=== PATIENT | female | born 1955 | race Caucasian/White ===

== ENCOUNTER → 2019-06-29 15:16 | Outpatient (CLI) | payer MEDICARE, MEDICAID, SELFPAY ==
--- NOTE | 2019-06-29 15:18 | DI.RAD.S_ITS ---
PROCEDURE: XR LUMBAR SPINE MIN 4V INDICATIONS: lumbar pain of greater than 3 months TECHNIQUE: 5 total views of the lumbar spine were acquired, including bilateral oblique views. COMPARISON: [facility], RG, MRI L-SPINE W/O CONTRAST, 04/15/2019, 13:16. FINDINGS: Bones: Mild levoconvex scoliotic curvature is noted. There is minimal anterolisthesis seen at L4-L5 and No displaced fractures are seen. No suspicious lytic or blastic lesions are seen. There is moderate disc space narrowing seen at L5-S1, with mild disc space narrowing at L4-L5 and L3-L4. Lower lumbar spine facet arthropathy is seen. Age-appropriate lower thoracic spine degenerative changes are seen. Soft tissues: Overlying bowel gas pattern is normal. No suspicious soft tissue calcifications. Oblique images: No pars defects. IMPRESSION: Lumbar spine degenerative changes are seen, which are most prominent inferiorly. Dictated by: Edmond Gonzalez M.D. on 06/29/2019 at 14:56 Approved by: Edmond Gonzalez M.D. on 06/29/2019 at 14:58
== END ==
PROVIDERS: Family Provider Nurse Practitioner Family; PCP Nurse Practitioner Family; Visit Provider Registered Nurse
DX: M54.5 Low back pain (principal); M47.816 Spondylosis without myelopathy or radiculopathy, lumbar region
CPT/HCPCS: 72110

== ENCOUNTER 2019-07-22 15:09 | Outpatient (CLI) | payer MEDICARE, MEDICAID, SELFPAY ==
[2019-07-22] VITALS (8 sets, daily range): BP systolic 112–168; BP diastolic 55–91; PULSE 59–76; RESP 16–22; TEMP 36.2; O2SAT 94–121
--- NOTE | 2019-07-22 15:10 | DI.RAD.S_ITS ---
PROCEDURE: PAIN L/S FACET INJ/BLK 1ST FLAQUITO COMPARISON: None. INDICATIONS: SPONDYLOSIS FINDINGS: Needle tip localization is documented bilaterally for facet joint injection at L4-5 and L5-S1. IMPRESSION: Successful needle tip localization for 4 facet steroid injection procedures. Dictated by: Martinez Wilks M.D. on 07/22/2019 at 16:53 Approved by: Martinez Wilks M.D. on 07/22/2019 at 16:57
[2019-07-22] MEDS: MIDAZOLAM 5 MG/5 ML VIAL IV (16:13)
[2019-07-22] MEDS: LIDOCAINE 1% 20 ML 10 ML INJ (16:22)
[2019-07-22] MEDS: BETAMETHASONE 30 MG/5 ML MDV 12 MG INJ (16:22)
[2019-07-22] MEDS: BUPIVACAINE 0.5% (PF) VIAL 2 ML INJ (16:22)
[2019-07-22] MEDS: IOPAMIDOL 15 ML VIAL 3 ML INJ (16:22)
--- NOTE | 2019-07-22 16:25 | PC.NURSE ---
ASSISTING PT OFF TABLE AND TRANSPORTING TO POST PROC AREA IN STABLE CONDITION. PASSING RN CARE OF PT OFF TO CIRA Gentile RN. VERSED PREPPED AND ADMINISTERED BY THIS RN. ALL OTHER MEDS PREPPED AND ADMINISTERED BY DR. SPANGLER.
--- NOTE | 2019-07-22 16:41 | P.PCN_ITS ---
Procedures Date/Time Date of procedure: 07/22/19 Time of procedure: 16:42 General Procedure description: PREOP DIAGNOSIS 1. FACET ARTHROPATHY 2. AXIAL LBP 3. MULTILEVEL DDD POST OP DIAGNOSIS 1. FACET ARTHROPATHY 2. AXIAL LBP 3. MULTILEVEL DDD PROCEDURES 1. FLUORSCOPICALLY GUIDED CONTRAST CONTROLLED FACET JOINT INJECTIONS BILATERAL L4/5, L5/S1 PHYSICIAN: Mauricio Kilgore, DO INDICATIONS David is referred by NISA Negro for treatment of Axial LBP FINDINGS Multilevel Facet Arthropathy with Clinically significant axial LBP DESCRIPTION OF PROCEDURE Fluoroscopically guided, contrast-controlled bilateral L4/5, L5/S1 facet joint injections. Following review of allergy and review of potential side effects and complications, including, but not necessarily limited to, infection, allergic reaction, local tissue breakdown, stroke, temporary or permanent nerve injury, paralysis, and possible , the patient indicated that the patient understood and agreed to proceed. An informed consent document was signed by the patient, witnessed by a nurse, and placed in the patient's chart. Additionally, other treatment options including medications, modalities, and physical therapy were reviewed with the patient. After review of previous anaesthesic history and IV conscious sedation the patient was deemed safe to proceed with todays procedure with IV conscious sedation as ASA class II designation. Safety time-out was performed to confirm patient ID, procedure to be performed and site of procedure. IV sedation was accomplished with a combination of 3mg of Versed was administered by the RN after DO order, titrated to patient comfort during the course of the procedure while the patient remained responsive to all verbal commands In the prone position, following sterile prep and drape of the lumbar region, the posterior aspect of the L4/5, L5/S1 facet joints were identified fluoroscopically. The skin was anesthetized via a 25-gauge 1.5-inch needle with 1% lidocaine solution into the corresponding facet joints. At this point, a 22- gauge 5-inch spinal needle was atraumatically introduced and advanced under fluoroscopic guidance into the corresponding facet joints. Following negative aspiration, injections of approximately 0.2-cc of Isovue 200 confirmed interarticular placement without vascular uptake. The identical procedure was then performed at the L4/5, L5/S1 facet joints on the left. Radiological data, including multiple fluoroscopic views of the lumbosacral spine, reveal a spinal needle at the L4/5, L5/S1 facet joints bilaterally. Subsequent views show flow of contrast material both superiorly and inferiorly within the joint space without vascular or intrathecal uptake. At this point, a total of 0.5cc including a mixture of 0.25cc Marcaine and 0.25cc betamethasone was injected without complication into each of the corresponding facet joints. The patient tolerated the procedure well without signs or symptoms of complications prior to transfer to the recovery area continued monitoring without incident. The patient was then transferred to the recovery area where they were observed for an appropriate period of time after the injection. The patient reported a VAS score of 7 prior to the procedure and a post- procedure VAS of 0. Total Fluoroscopy Time: 20.3 seconds Total Conscious Sedation Time: 24min POST OP INSTRUCTIONS The patient was provided a Pain Log to continue to record their response to the target-specific procedure prior to follow-up visit with their referring physician. Additionally, specific post-injection care instructions and a contact number to our office were provided if concerns arise regarding possible complications associated with the procedure are suspected. Mauricio Kilgore DO Complications: none
--- NOTE | 2019-07-22 16:44 | PC.NURSE ---
DI note: Received patient post procedure, awake, and alert, VSS. Up out of WC to chair, 0/10 pain
== END 2019-07-22 17:00 | disposition home or self-care (01) ==
LOC: RAD 15:10
PROVIDERS: Family Provider Nurse Practitioner Family; PCP Nurse Practitioner Family; Visit Provider Physical Medicine & Rehabilitation
DX: M47.816 Spondylosis without myelopathy or radiculopathy, lumbar region (principal); M47.817 Spondylosis without myelopathy or radiculopathy, lumbosacral region; M54.5 Low back pain; M51.36 Other intervertebral disc degeneration, lumbar region; M51.37 Other intervertebral disc degeneration, lumbosacral region
CPT/HCPCS: 64493; 64494; 99152; J0702; J2250; J3010

== ENCOUNTER → 2020-10-26 15:03 | Outpatient (CLI) | payer MEDICARE, MEDICAID, SELFPAY ==
[2020-10-26] MEDS: COVID-19 VACC, Ad26(JANSSEN)/PF 0.5 ML IM (15:19)
== END ==
PROVIDERS: Family Provider Nurse Practitioner Family; PCP Nurse Practitioner Family; Visit Provider Internal Medicine
DX: Z23 Encounter for immunization (principal)
CPT/HCPCS: 0031A; 91303

== ENCOUNTER 2023-01-18 09:36 | Observation (INO) | payer OTHER, MEDICAID, SELFPAY ==
[2023-01-18] VITALS (16 sets, daily range): BP systolic 99–140; BP diastolic 53–86; PULSE 66–92; RESP 16–17; TEMP 36.1–37.8; O2SAT 93–98; BMI 54.9; BMI 59.4
--- NOTE | 2023-01-18 10:01 | ED.SKABFB ---
HPI - Skin/Abscess/Foreign Bdy General Chief complaint: Skin/Abscess/Foreign Body Stated complaint: infection on Lt leg Time Seen by Provider: 01/18/23 09:46 History of Present Illness HPI narrative: Patient is 67-year-old female history of atrial fibrillation on Eliquis history of lymphedema presenting today with left leg swelling and pain. She initially was seen on January 09 for some redness and wounds that opened up she was given Keflex. She was seen 3 days later it [facility] she was having worsening redness and pain she was given pain medicine and switched over to doxycycline. She is 2 tablets left of doxycycline and she says the pain is significantly worse he continues to be red she says it she feels it get hot. She denies any sweats and chills. She reports that cultures were taken at would be but she is unable to get those results. She is followed by wound care as well. Related Data Home Medications Medication Instructions Recorded Confirmed Metoprolol Tartrate (Lopressor) 25 mg PO BID ##0 01/29/06 01/18/23 apixaban 5 mg tablet (Eliquis) 5 mg PO BID 01/18/23 01/18/23 hydrocodone 5 mg-acetaminophen 325 1 tab PO Q6H PRN Pain (Scale Score 01/18/23 01/18/23 mg tablet 4-6) lisinopril 10 mg tablet 5 mg PO BID 01/18/23 01/18/23 Allergies Allergy/AdvReac Type Severity Reaction Status Date / Time morphine Allergy Severe violent Verified 06/30/19 08:13 sick reaction codeine Allergy Intermediate rash/hives Verified 06/30/19 08:13 Review of Systems Review of Systems ROS Unobtainable: All systems reviewed & are unremarkable except as noted in HPI and below Patient History Medical History (Updated 01/18/23 @ 12:21 by Yuliana Gonsales DO) Facet arthropathy, lumbosacral Family History Mother Stroke Sister Uterine cancer Social History household members: none Smoking Status: Former smoker alcohol intake: current Smoking Status: Former smoker Exam Initial Vital Signs Initial Vital Signs: Vital Signs Temperature 97.0 F L 06/04/23 09:40 Pulse Rate 91 H 01/18/23 09:40 Respiratory Rate 16 01/18/23 09:40 Blood Pressure 114/74 01/18/23 09:40 Pulse Oximetry 97 01/18/23 09:40 Oxygen Delivery Method Room Air 01/18/23 09:40 GENERAL: Alert pleasant 67-year-old female appears uncomfortable and in pain, BMI 54 HEENT: Head atraumatic,EOMI, pupils reactive, face symmetric, moist mucous membranes CARDIOVASCULAR: Regular rate and rhythm without murmurs, rubs or gallops. RESPIRATORY: Breath sounds equal bilaterally, no wheezes rales or rhonchi. ABDOMEN: Soft, nontender. Normoactive bowel sounds all 4 quadrants. No guarding or rebound. EXTREMITIES: Normal range of motion, no clubbing or edema. Neurovascularly intact NEUROLOGICAL: Alert and oriented x4. SKIN: Left lower extremity 2 wounds 1 anterior 1 posterior covered in Xeroform significant erythema swelling and pain of lower extremity inferior to knee Course Orders Ordered: ED Orders 01/18/23 10:30 CBC Auto Diff [Complete Blood Count AUTO DIFF] Stat CMP [Comprehensive Metabolic Panel] Stat Lactate (Lactic Acid) Stat Procalcitonin Stat 01/18/23 10:50 Blood Culture Stat Acetaminophen (Acetaminophen 325 Mg Tablet) 650 mg PO Q6H PRN PRN Reason: Fever/Mild Pain (1-3) Hydrocodone Bitart/Acetaminophen (Hydrocodone/Acet 5/325 Tablet) 1 tab PO Q6H PRN PRN Reason: Pain (Scale Score 4-6) Last Admin: 01/18/23 15:58 Dose: 1 tab Documented By: SB Apixaban (Apixaban 5 Mg Tablet) 5 mg PO BID MADDIE Ceftriaxone Sodium 2,000 mg/ (Sodium Chloride) 100 mls @ 200 mls/hr IV Q24H MADDIE Vancomycin HCl (Vancomycin) 1,250 mg in 250 mls @ 250 mls/hr IV Q8H MADDIE Sodium Chloride (Normal Saline 0.9%) 250 mls @ 21 mls/hr IV Q24H PRN PRN Reason: Flush Lisinopril (Lisinopril 10 Mg Tablet) 5 mg PO BID MADDIE Metoprolol Tartrate (Metoprolol Ir 25 Mg Tablet) 25 mg PO BID MADDIE Naloxone HCl (Naloxone 0.4 Mg/Ml Vial) 0.2 mg IV Q2MIN PRN PRN Reason: Opiate Reversal Ondansetron HCl (Ondansetron 4 Mg Odt) 4 mg PO Q8HR PRN PRN Reason: Nausea And Vomiting Sodium Chloride (Sodium Chloride 0.9% Flush) 10 ml IV PRN PRN PRN Reason: Flush Sodium Chloride (Sodium Chloride 0.9% Flush) 10 ml IV BID [facility] Vancomycin HCl (Vancomycin Trough) 1 request [facility] [address] [facility] Stop: 01/19/23 11:31 Discontinued Medications Hydromorphone HCl (Hydromorphone 0.5 Mg Inj) 0.5 mg IV NOW ONE Stop: 01/18/23 11:08 Last Admin: 01/18/23 11:12 Dose: 0.5 mg Documented By: SAMANTHA Ceftriaxone Sodium 2,000 mg/ (Sodium Chloride) 100 mls @ 200 mls/hr IV NOW ONE Stop: 01/18/23 10:28 Last Infusion: 01/18/23 11:40 Dose: 0 mls/hr Documented By: Admin: 01/18/23 11:03 Dose: 200 mls/hr Documented By: SAMANTHA Vancomycin HCl/Dextrose (Vancomycin) 2,000 mg in 400 mls @ 200 mls/hr IV NOW ONE Stop: 01/18/23 12:28 Last Infusion: 01/18/23 13:25 Dose: 0 mls/hr Documented By: Infusion: 01/18/23 13:10 Dose: 200 mls/hr Documented By: Admin: 01/18/23 11:44 Dose: 200 mls/hr Documented By: SAMANTHA Ondansetron HCl (Ondansetron 4 Mg/2 Ml Inj) 4 mg IV NOW ONE Stop: 01/18/23 11:11 Last Admin: 01/18/23 11:12 Dose: 4 mg Documented By: SAMANTHA Vital Signs Vital signs: Vital Signs - 8 hr 01/18/23 11:02 01/18/23 11:04 01/18/23 11:04 Pulse Rate 69 73 Blood Pressure 123/74 Pulse Oximetry 98 98 01/18/23 11:19 01/18/23 11:19 01/18/23 11:30 Pulse Rate 78 74 Blood Pressure 125/73 Pulse Oximetry 98 97 01/18/23 11:31 01/18/23 11:31 01/18/23 12:00 Pulse Rate 74 Blood Pressure 113/71 128/86 Pulse Oximetry 97 01/18/23 12:00 Pulse Rate 69 Blood Pressure Pulse Oximetry 94 MDM - Skin/Abscess/Foreign Bdy Lab Data 01/18/23 10:30 01/18/23 10:30 Labs: Lab Results 01/18/23 01/18/23 01/18/23 Range/Units 10:30 10:30 10:30 WBC 6.8 (4.5-11.0) X10^3/uL RBC 3.30 L (4.0-5.2) X10^6/uL Hgb 11.3 L (12.0-16.0) g/dL Hct 32.7 L (36-46) % MCV 99.1 (80-100) fL MCH 34.3 H (26-34) PG MCHC 34.6 (30-36) % RDW 15.3 H (11.6-14.8) % Plt Count 295 (150-400) X10^3/uL Neut % (Auto) Not Reportable Lymph % (Auto) Not Reportable Hickman % (Auto) Not Reportable Eos % (Auto) Not Reportable Baso % (Auto) Not Reportable Lymph # (Auto) Not Reportable [place]ickman # (Auto) Not Reportable Baso # (Auto) Not Reportable Total Counted 100 Seg Neutrophils % 82.0 H (38-70) % Lymphocytes % (Manual) 11.0 L (25-45) % Monocytes % (Manual) 5.0 (2-11) % Eosinophils % (Manual) 1.0 L (2-4) % Basophils % (Manual) 1.0 (0-1) % Neutrophils # (Manual) 5576 (7084-4206) /uL Plt Morphology Comment RBC Morphology See below Macrocytosis 1+ H Sodium 135 L (137-145) mmol/L Potassium 4.4 (3.4-5.1) mmol/L Chloride 96 L (98-107) mmol/L Carbon Dioxide 32 (22-32) mmol/L BUN 10 (7-17) mg/dL Creatinine 0.63 (0.52-1.04) mg/dL Estimated GFR > 60 (>60) mL/min BUN/Creatinine Ratio 15.9 (6-22) Glucose 156 H (80-110) mg/dL Lactate 1.2 (0.7-2.1) mmol/L Calcium 9.9 (8.4-10.2) mg/dL Total Bilirubin 0.9 (0.2-1.3) mg/dL AST 23 (14-36) IU/L ALT 28 (<35) IU/L Alkaline Phosphatase 158 H (38-126) U/L Total Protein 7.6 (6.3-8.2) g/dL Albumin 3.8 (3.5-5.0) g/dL Globulin 3.8 (1.7-4.1) g/dL Albumin/Globulin Ratio 1.0 (1.0-2.8) Procalcitonin 0.05 (<0.5) ng/mL MDM Narrative Medical decision making narrative: Patient is 67-year-old female history of lymphedema presents today with increasing pain and redness in the left leg. She has failed outpatient treatment with almost a full course of doxycycline and was previously on Keflex for just 1-2 days. She is afebrile she is no significant leukocytosis. She was started on Rocephin and vancomycin here in the emergency department. Pain is quite severe and lower leg is quite red. She has no sign of severe sepsis hypotensive tachycardic or febrile. Dr. Deshpande has accepted patient. Discharge Plan Departure Patient Disposition: Admitted as Observation Clinical Impression: Cellulitis Admit Date/Time: 01/18/23 12:21 Admit Provider: Shruthi Deshpande
[2023-01-18 10:45] LABS: Hematocrit 32.7 % (36-46); Hemoglobin 11.3 g/dL (12.0-16.0); Mean Corpuscular HGB Conc 34.6 % (30-36); Mean Corpuscular Hemoglobin 34.3 PG (26-34); Mean Corpuscular Volume 99.1 fL (80-100); Platelet Count 295 X10^3/uL (150-400); Red Cell Distribution Width 15.3 % (11.6-14.8); White Blood Cell Count 6.8 X10^3/uL (4.5-11.0)
[2023-01-18 10:47] LABS: Add Manual Diff / Slide Review YES
[2023-01-18 10:53] LABS: Lactate (Lactic Acid) 1.2 mmol/L (0.7-2.1)
[2023-01-18 10:54] LABS: Alanine Aminotransferase 28 IU/L (<35); Albumin 3.8 g/dL (3.5-5.0); Alkaline Phosphatase 158 U/L (38-126); Aspartate Aminotransferase 23 IU/L (14-36); BUN Creatinine Ratio 15.9 (6-22); Bilirubin Total 0.9 mg/dL (0.2-1.3); Blood Urea Nitrogen 10 mg/dL (7-17); Calcium 9.9 mg/dL (8.4-10.2); Carbon Dioxide 32 mmol/L (22-32); Chloride 96 mmol/L (98-107); Estimated Glomerular Filt Rate > 60 mL/min (>60); Globulin 3.8 g/dL (1.7-4.1); Glucose 156 mg/dL (80-110); HEMOLYSIS < 15 (0-50); Potassium 4.4 mmol/L (3.4-5.1); Sodium 135 mmol/L (137-145); Total Protein 7.6 g/dL (6.3-8.2)
[2023-01-18 10:59] LABS: Neutrophils Absolute Manual 5576 /uL (3000-5900); Total Cells Counted 100
[2023-01-18 11:00] LABS: Macrocytosis 1+
[2023-01-18] MEDS: cefTRIAXone 2,000 MG in SODIUM CHLORIDE 0.9% 100 ML 200 MG IV (11:03)
[2023-01-18 11:12] LABS: Procalcitonin 0.05 ng/mL (<0.5)
[2023-01-18] MEDS: ONDANSETRON 4 MG/2 ML INJ IV (11:12)
[2023-01-18] MEDS: HYDROMORPHONE 0.5 MG INJ IV (11:12)
[2023-01-18] MEDS: VANCOMYCIN 2,000 MG/400 ML PIGGYBACK 200 MG IV (11:44)
--- NOTE | 2023-01-18 15:37 | P.HP_ITS ---
History of Present Illness History of Present Illness Chief complaint: infection on Lt leg Narrative: 67-year-old female with permanent atrial fibrillation on Eliquis anticoagulation, eczema, questionable rheumatoid arthritis, and chronic lymphedema (left greater than right) who presented to the emergency department with ongoing pain, swelling, redness and wound to the left lower extremity as well as fevers, chills, nausea and dry heaving Patient reports she has been having difficulties with lymphedema since the fall. She notes that around October of this year the left 1 appeared to be worse. She was having weeping edema and noted she would wake up at night rubbing her leg against the sheets due to itching. She was seen by her primary care provider, underwent ultrasound which showed no DVT. She was then referred to wound care as she would developed 2 small ulcers, 1 on the couch, and 1 on the calf. She is been seen on a [facility]. It has been managed with Xeroform gauze dressings. She notes she would a similar wound on the right leg which has since resolved. Over the past couple of weeks, she is had increasing redness, pain, swelling, fevers and chills. She notes that the onset of her symptoms, she would a fever as high as 104. She states she went into the walk-in clinic on [facility] on January 09. She was given a prescription for Keflex and advised to return for recheck if she had no improvement. She notes she would continued pain and worsening symptoms and subsequently presented to [facility] on January 12. She states wound were taken there and she was subsequently given a prescription of doxycycline. She has taken that for the last 6 days but has again had no improvement. She reports she had a fever of 101 yesterday. She also has had dry heaves and states she was able to take in very little yesterday. She complains of chills and sweats. Today, she reports her appetite is improving and she is actually hungry. No chest pain or shortness of breath. She notes that she is been told there is a vascular surgery procedure that ?cures lymphedema ?. She has had an intake with that vascular surgeon's office, which is in [place]. She notes she has an appointment in approximately 1-1/2 weeks to be evaluated further. She reports she does have an adjustable bed at home and has been elevating her leg regularly. However, as the pain has continued to worsen she is had more difficulty with her ADLs. [facility] Medical History (Updated 01/18/23 @ 12:21 by Yuliana Gonsales DO) Facet arthropathy, lumbosacral Family History Mother Stroke Sister Uterine cancer Social History household members: none Smoking Status: Former smoker alcohol intake: current Comment: Past medical history: Atrial fibrillation on chronic Eliquis anticoagulation Chronic lymphedema RA versus fibromyalgia (unclear based on outside records) History of cataract Class 3 obesity with BMI 59.4 Eczema Family history: Both her mother and sister had cervical cancer. Meds Home Medications and Allergies Home Medications Medication Instructions Recorded Confirmed Type Metoprolol Tartrate (Lopressor) 25 mg PO BID ##0 01/29/06 06/30/19 History apixaban 5 mg tablet (Eliquis) 5 mg PO BID 01/18/23 01/18/23 History hydrocodone 5 mg-acetaminophen 325 1 tab PO Q6H PRN Pain (Scale Score 01/18/23 01/18/23 History mg tablet 4-6) lisinopril 10 mg tablet 5 mg PO BID 01/18/23 01/18/23 History Allergies Allergy/AdvReac Type Severity Reaction Status Date / Time morphine Allergy Severe violent Verified 06/30/19 08:13 sick reaction codeine Allergy Intermediate rash/hives Verified 06/30/19 08:13 Review of Systems Review of Systems Narrative: All other systems were reviewed negative Exam Vital Signs (past 8 hours): - 01/18/23 09:40 01/18/23 09:51 01/18/23 10:00 Temperature 97.0 F L Pulse Rate 91 H 81 88 Respiratory Rate 16 Blood Pressure 114/74 Pulse Oximetry 97 97 97 Oxygen Delivery Method Room Air 01/18/23 11:02 01/18/23 11:04 01/18/23 11:04 Temperature Pulse Rate 69 73 Respiratory Rate Blood Pressure 123/74 Pulse Oximetry 98 98 Oxygen Delivery Method 01/18/23 11:19 01/18/23 11:19 01/18/23 11:30 Temperature Pulse Rate 78 74 Respiratory Rate Blood Pressure 125/73 Pulse Oximetry 98 97 Oxygen Delivery Method 01/18/23 11:31 01/18/23 11:31 01/18/23 12:00 Temperature Pulse Rate 74 Respiratory Rate Blood Pressure 113/71 128/86 Pulse Oximetry 97 Oxygen Delivery Method 01/18/23 12:00 01/18/23 12:30 01/18/23 12:30 Temperature Pulse Rate 69 92 H Respiratory Rate Blood Pressure 127/74 Pulse Oximetry 94 93 Oxygen Delivery Method 01/18/23 13:00 01/18/23 13:00 Temperature Pulse Rate 76 Respiratory Rate Blood Pressure 140/74 Pulse Oximetry 97 Oxygen Delivery Method Oxygen Delivery Method Room Air Narrative Exam Narrative: GEN: Middle-aged female, very pleasant, Alert and oriented x3, no acute distress HEENT: Normocephalic, face symmetric, pupils equal round reactive to light, extraocular movements intact, sclerae anicteric, conjunctiva clear, nares patent, oropharynx reveals an intact soft and hard palate with moist mucous membranes, edentulous NECK: Supple, no lymphadenopathy, thyroid without enlargement or nodularity, carotids no bruits CHEST: Respiratory excursions symmetric, clear to auscultation bilaterally CV: Regular rate and rhythm, no murmurs, rubs, gallops, PMI can not be palpated ABD: Soft, nontender, nondistended, bowel sounds present in all 4 quadrants, body habitus limits exam EXTR: Warm, well perfused, right lower extremity reveals some scaling related to previous wounds and venous stasis. Left lower extremity reveals 4+ edema/lymphedema, bright red erythema to the area of her leg [id number], small superficial ulceration to the couch as well as the posterior calf (the lesion on the couch is quite circumscribed and circular) small amount of serous drainage noted on the leg SKIN: Warm and dry, without rash NEURO: Alert and oriented x3, grossly intact PSYCH: Mood and affect is within normal limits, judgment and insight are appropriate Objective Labs 01/18/23 10:30 01/18/23 10:30 Labs: Laboratory Results - last 24 hr 01/18/23 01/18/23 01/18/23 10:30 10:30 10:30 WBC 6.8 RBC 3.30 L Hgb 11.3 L Hct 32.7 L MCV 99.1 MCH 34.3 H MCHC 34.6 RDW 15.3 H Plt Count 295 Neut % (Auto) Not Reportable Lymph % (Auto) Not Reportable Humphreys % (Auto) Not Reportable Eos % (Auto) Not Reportable Baso % (Auto) Not Reportable Lymph # (Auto) Not Reportable Humphreys # (Auto) Not Reportable Baso # (Auto) Not Reportable Total Counted 100 Seg Neutrophils % 82.0 H Lymphocytes % (Manual) 11.0 L Monocytes % (Manual) 5.0 Eosinophils % (Manual) 1.0 L Basophils % (Manual) 1.0 Neutrophils # (Manual) 5576 Plt Morphology Comment RBC Morphology See below Macrocytosis 1+ H Sodium 135 L Potassium 4.4 Chloride 96 L Carbon Dioxide 32 BUN 10 Creatinine 0.63 Estimated GFR > 60 BUN/Creatinine Ratio 15.9 Glucose 156 H Lactate 1.2 Calcium 9.9 Total Bilirubin 0.9 AST 23 ALT 28 Alkaline Phosphatase 158 H Total Protein 7.6 Albumin 3.8 Globulin 3.8 Albumin/Globulin Ratio 1.0 Procalcitonin 0.05 Assessment & Plan Assessment & Plan narrative: 1. Left lower extremity cellulitis in the setting of chronic lymphedema Patient has failed outpatient treatment x2. She presents with fevers, chills, nausea and vomiting. She was afebrile today but reports she is been taking Tylenol. White blood cell count is within normal limits. At this time, I do not feel a wound culture would be productive as it will likely just reveal skin mariza. Will obtain an MRSA nasal swab for completeness. Continue ceftriaxone and vancomycin for now. If her MRSA screen is negative, can likely discontinue vancomycin. Given the degree of her lymphedema, patient may require a longer course of IV antibiotics. Will elevate extremity as able. 2. Chronic lymphedema with left lower extremity wound Will continue dressing with Xeroform and gauze as she has been doing with the wound care clinic. She has a plan to follow up with vascular surgery as noted in the HPI. 3. Nausea and vomiting Patient reports overall symptom improvement. Sodium is very mildly low at 135. She is now hungry and eating lunch. Will continue to monitor. 4. Hyperglycemia Patient denies any known history of diabetes. Will send a hemoglobin A1c for completeness 5. Atrial fibrillation She is sinus by exam today. Will continue apixaban and metoprolol. Await medication reconciliation on metoprolol dosing. 6. Hypertension continue her usual dose of lisinopril. 7. Constipation/diarrhea Patient was having constipation and took Dulcolax. She states she subsequently developed significant diarrhea. She notes her most recent bowel movement was today and remained loose. Will defer any additional bowel meds for now. 8. Class 3 obesity BMI is 59.4. She is at risk for hypoventilation and respiratory depression with opiate therapy. She did receive IV Dilaudid in the ER. She will remain on oral hydrocodone here. Code status Patient reports she is a DNR and would not want to ?be on life support?. Prophylaxis Will place on b.i.d. Lovenox Disposition Admit to acute care Quality VTE Deep Vein Thrombosis/Pulmonary Embolism Present on Admission: No
[2023-01-18] MEDS: HYDROCODONE/ACET 5/325 TABLET 1 TAB PO (15:58)
[2023-01-18 16:38] LABS: MRSA (Nasal) PCR Not Detected (Not Detect)
--- NOTE | 2023-01-18 17:17 | PC.NURSE ---
Day shift: Patient admitted from ED at 1332. Arrived on acute care floor with IV vancomycin running via PIV. LLE has 2 open sores - 1 anterior couch and 1 posterior calf. Both have scant serosanguinous drainage. After MD Deshpande saw patient, this RN washed wounds and covered with xeroform and gauze wrap. Patient up to BR with 1 person SBA and FWW. VS WNL. Denies nausea. Pain adequately controlled with hydrocodone 5/325. Will continue to monitor.
--- NOTE | 2023-01-18 18:59 | PM.PN.1 ---
Subjective Subjective Interval history: 67-year-old female with permanent atrial fibrillation on Eliquis anticoagulation, eczema, questionable rheumatoid arthritis, and chronic lymphedema (left greater than right) who was admitted yesterday with left lower extremity cellulitis in the setting of chronic lymphedema, that had failed outpatient treatment Patient reports she is feeling quite a bit better today. She is having less pain. She was able to get up a little bit and walk. That had been a difficulty for her previously. She does express concern over low blood pressures. She states they have been in the low 90s. She notes nurse made her take her blood pressure medications despite her concerns. She reports her appetite is improving. She does describe 2 types of pain, neuropathic type pain and an aching pain. She is asking to have her B12 vitamin restarted, potassium supplementation restarted, a laxative, and for blood pressure parameters to be added to her meds. Exam Vital Signs (past 8 hours): - 01/18/23 11:02 01/18/23 11:04 01/18/23 11:04 Temperature Pulse Rate 69 73 Respiratory Rate Blood Pressure 123/74 Pulse Oximetry 98 98 01/18/23 11:19 01/18/23 11:19 01/18/23 11:30 Temperature Pulse Rate 78 74 Respiratory Rate Blood Pressure 125/73 Pulse Oximetry 98 97 01/18/23 11:31 01/18/23 11:31 01/18/23 12:00 Temperature Pulse Rate 74 Respiratory Rate Blood Pressure 113/71 128/86 Pulse Oximetry 97 01/18/23 12:00 01/18/23 12:30 01/18/23 12:30 Temperature Pulse Rate 69 92 H Respiratory Rate Blood Pressure 127/74 Pulse Oximetry 94 93 01/18/23 13:00 01/18/23 13:00 01/18/23 13:25 Temperature 98.8 F Pulse Rate 76 66 Respiratory Rate 16 Blood Pressure 140/74 129/66 Pulse Oximetry 97 95 Oxygen Delivery Method Room Air Narrative Exam Narrative: GEN:? Middle-aged female, very pleasant, Alert and oriented x3, no acute distress HEENT:? Normocephalic, face symmetric, edentulous CHEST:? Respiratory excursions symmetric, clear to auscultation bilaterally CV:? Regular rate and rhythm, no murmurs, rubs, gallops, PMI can not be palpated ABD:? Soft, nontender, nondistended, bowel sounds present in all 4 quadrants, body habitus limits exam EXTR:? Warm, well perfused, right lower extremity reveals some scaling related to previous wounds and venous stasis.? Left lower extremity reveals 3+ edema/lymphedema, bright red erythema to the area of her leg [id number], which has improved, superficial ulcerations were not visualized today SKIN:? Warm and dry, without rash NEURO:? Alert and oriented x3, grossly intact PSYCH:? Mood and affect is within normal limits, judgment and insight are appropriate Objective Labs 01/19/23 06:06 01/19/23 06:06 Labs: Laboratory Results - last 24 hr 01/18/23 01/18/23 01/18/23 10:30 10:30 10:30 WBC 6.8 RBC 3.30 L Hgb 11.3 L Hct 32.7 L MCV 99.1 MCH 34.3 H MCHC 34.6 RDW 15.3 H Plt Count 295 Neut % (Auto) Not Reportable Lymph % (Auto) Not Reportable [place] % (Auto) Not Reportable Eos % (Auto) Not Reportable Baso % (Auto) Not Reportable Lymph # (Auto) Not Reportable [place] # (Auto) Not Reportable Baso # (Auto) Not Reportable Total Counted 100 Seg Neutrophils % 82.0 H Lymphocytes % (Manual) 11.0 L Monocytes % (Manual) 5.0 Eosinophils % (Manual) 1.0 L Basophils % (Manual) 1.0 Neutrophils # (Manual) 5576 Plt Morphology Comment RBC Morphology See below Macrocytosis 1+ H Sodium 135 L Potassium 4.4 Chloride 96 L Carbon Dioxide 32 BUN 10 Creatinine 0.63 Estimated GFR > 60 BUN/Creatinine Ratio 15.9 Glucose 156 H Lactate 1.2 Calcium 9.9 Total Bilirubin 0.9 AST 23 ALT 28 Alkaline Phosphatase 158 H Total Protein 7.6 Albumin 3.8 Globulin 3.8 Albumin/Globulin Ratio 1.0 Procalcitonin 0.05 Nasal Screen MRSA (PCR) 01/18/23 14:55 WBC RBC Hgb Hct MCV MCH MCHC RDW Plt Count Neut % (Auto) Lymph % (Auto) [place] % (Auto) Eos % (Auto) Baso % (Auto) Lymph # (Auto) [place] # (Auto) Baso # (Auto) Total Counted Seg Neutrophils % Lymphocytes % (Manual) Monocytes % (Manual) Eosinophils % (Manual) Basophils % (Manual) Neutrophils # (Manual) Plt Morphology Comment RBC Morphology Macrocytosis Sodium Potassium Chloride Carbon Dioxide BUN Creatinine Estimated GFR BUN/Creatinine Ratio Glucose Lactate Calcium Total Bilirubin AST ALT Alkaline Phosphatase Total Protein Albumin Globulin Albumin/Globulin Ratio Procalcitonin Nasal Screen MRSA (PCR) Not detected [facility] Medical History (Updated 01/18/23 @ 12:21 by Yuliana Gonsales DO) Facet arthropathy, lumbosacral Family History Mother Stroke Sister Uterine cancer Social History household members: none Smoking Status: Former smoker alcohol intake: current Assessment & Plan Assessment & Plan narrative: 1. Left lower extremity cellulitis in the setting of chronic lymphedema Patient has failed outpatient treatment x2.? She presented with fevers, chills, nausea and vomiting.? Her fever, chills, nausea and vomiting have improved. Continues to elevate her leg as able. Remains on ceftriaxone. Vancomycin was discontinued as her MRSA screen was negative. There was no significant drainage to culture from her leg wounds, and I felt very strongly that any bacterial load was likely from her skin and not infection. 2. Chronic lymphedema with left lower extremity wound Will continue dressing with Xeroform and gauze as she has been doing with the wound care clinic.? She has a plan to follow up with vascular surgery as noted in my history and physical 3. Nausea and vomiting Resolved. 4. Hyperglycemia Patient denies any known history of diabetes.? Hemoglobin A1c is presently pending 5. Atrial fibrillation Continues apixaban and metoprolol 6. Hypertension continue her usual dose of lisinopril. Holding parameters were placed on lisinopril and metoprolol 7. Constipation/diarrhea Patient was constipated until taking Dulcolax and reported on admission she was having diarrhea. She is now feeling constipated. I have added senna. 8. Class 3 obesity BMI is 59.4.? She is at risk for hypoventilation and respiratory depression with opiate therapy.? Code status DNR Prophylaxis B.i.d. Lovenox Disposition Inpatient, medical floor. If she continues to improve, she may be able to discharge home tomorrow. Quality VTE Deep Vein Thrombosis/Pulmonary Embolism Present on Admission: No
[2023-01-18] MEDS: HYDROCODONE/ACET 5/325 TABLET 2 TAB PO (19:47)
[2023-01-18] MEDS: APIXABAN 5 MG TABLET PO (20:34)
[2023-01-18] MEDS: lisinopriL 10 MG TABLET 5 MG PO (20:35)
[2023-01-18] MEDS: METOPROLOL IR 25 MG TABLET PO (20:35)
[2023-01-18] MEDS: SODIUM CHLORIDE 0.9% FLUSH 10 ML IV (20:35)
--- NOTE | 2023-01-18 21:42 | PC.NURSE ---
Patient is alert and oriented. Breath sounds diminished throughout possibly related to obesity; RA sat 97%. HR irregular; has hx of afib. Denies nausea. BT present and reports having had BM earlier today. Voiding on toilet and denies dysuria but reports urinary urgency but only during night. Is able to move herself in bed but needs assistance to get out of bed. Walks to bathroom with walker and SBA. Dressing to left LE is CDI; erythema noted to knee. Has 3-4+ edema in left LE; leg is elevated on pillows in bed. At shift change patient complaining of increasing pain in left LE along with itching but Vicodin ordered only q6h so Dr. Deshpande was informed and new orders obtained; she did not want to order anything for itching at this time. Declined use of SCD to right LE but stated she would do it in the morning. Fall risk score is high and bed alarm is activated.
[2023-01-19] VITALS (8 sets, daily range): BP systolic 91–146; BP diastolic 55–83; PULSE 59–85; RESP 17–20; TEMP 36.1–37.7; O2SAT 93–97
[2023-01-19] MEDS: HYDROCODONE/ACET 5/325 TABLET 2 TAB PO ×4 (01:20→18:32)
[2023-01-19] MEDS: TRAMADOL 50 MG TABLET 100 MG PO (05:02)
[2023-01-19 06:26] LABS: Add Manual Diff / Slide Review NO; Basophils Absolute Auto 100 /uL (0-100); Basophils Percent Auto 1.3 % (0-2); Eosinophils Absolute Auto 0 /uL (0-450); Eosinophils Percent Auto 0.5 % (2-4); Hematocrit 30.4 % (36-46); Hemoglobin 10.4 g/dL (12.0-16.0); Lymphocytes Absolute Auto 1200 /uL (1100-4500); Lymphocytes Percent Auto 21.4 % (25-40); Mean Corpuscular HGB Conc 34.4 % (30-36); Mean Corpuscular Hemoglobin 33.9 PG (26-34); Mean Corpuscular Volume 98.8 fL (80-100); Monocytes Absolute Auto 600 /uL (0-900); Monocytes Percent Auto 10.8 % (3-14); Neutrophils Absolute Auto 3600 /uL (1500-7000); Platelet Count 296 X10^3/uL (150-400); Red Blood Cell Count 3.08 X10^6/uL (4.0-5.2); Red Cell Distribution Width 15.1 % (11.6-14.8); White Blood Cell Count 5.5 X10^3/uL (4.5-11.0)
[2023-01-19 06:41] LABS: Blood Urea Nitrogen 11 mg/dL (7-17); Calcium 9.3 mg/dL (8.4-10.2); Carbon Dioxide 32 mmol/L (22-32); Chloride 97 mmol/L (98-107); Estimated Glomerular Filt Rate > 60 mL/min (>60); Glucose 119 mg/dL (80-110); HEMOLYSIS < 15 (0-50); Potassium 4.4 mmol/L (3.4-5.1); Sodium 133 mmol/L (137-145)
[2023-01-19] MEDS: METOPROLOL IR 25 MG TABLET PO ×2 (08:24→20:39)
[2023-01-19] MEDS: APIXABAN 5 MG TABLET PO ×2 (08:24→20:39)
[2023-01-19] MEDS: SENNOSIDES 8.6 MG TABLET PO ×2 (09:47→20:40)
[2023-01-19] MEDS: POTASSIUM CHLORIDE 10 MEQ TAB PO (09:47)
[2023-01-19] MEDS: SODIUM CHLORIDE 0.9% FLUSH 10 ML IV ×2 (09:48→20:40)
[2023-01-19] MEDS: cefTRIAXone 2,000 MG in SODIUM CHLORIDE 0.9% 100 ML 200 MG IV (10:40)
--- NOTE | 2023-01-19 12:17 | CM.DANOTE ---
DCP: patient is a 67yo F here for cellulitis in the left leg. PCP: Lizzy Negro Payer: Medicare and Medicaid From nursing staff, nurse is concerned about patient ability to transport to follow up care due to patient's financial status. From rounds, provider reported she anticipates patient will be here until tomorrow or the next day. Provider reports that she is not anticipating patient will need IV antibiotics at home upon d/c at this time. Provider reports patient may benefit from HH services. TRAILER CHIEF reviewed EMR. TRAILER CHIEF entered room and introduced self and role. Patient was A/Ox4 and was talkative throughout our interaction. Patient reported on recent struggles with receiving medical care for her current condition over the past few weeks. Patient reported she is disappointed with her PCP and is looking for a potential new PCP in the [facility]. Patient reports that she is normally independent with ADLs at baseline, but her leg has made it difficult to ambulate and care for herself. Patient reports that her daughter/emergency contact, Kyra Fox ([phone]) lives about a half an hour away and can come help with her household needs if needed. Patient reports she has and uses her cane and FWW. Patient has shower chairs and a ramp that she uses to get into her home. Patient reported being interested in transferring her wound care to [place]/closer to her home. TRAILER CHIEF encouraged patient to speak with provider about her clinical follow up concerns. Patient reported being interested in HH services for wound care, but is concerned that it would impact her ability to qualify for HH services following her surgery that is coming up. TRAILER CHIEF consulted fellow CM staff, and then reported to patient that with a new hospitalization, she would have a new reason to qualify for HH services. Patient requested to work with [facility] but is open to other agencies if necessary. KYLE Amaya will fax off referral information to [facility] to inquire about opening services for wound care. Plan: Patient will transport self home in [place]. Patient will go home with [facility] for wound care. CM team will follow up with [facility] to see if they accepted referral and to inquire about a start date. CM team will continue to follow up with [facility]. CM team will continue to follow with needs. MARICARMEN Vitale Discharge Planning/Care Management CM Discharge Assessment Start: 01/19/23 12:09 Freq: Status: Active Protocol: Document 01/19/23 12:09 LUIS (Rec: 01/19/23 12:13 LUIS [id number]) Discharge Planning Assessment Assigned Detail Sergeant MARICARMEN Vitale DPOA/Assigned Designee Name Kyra Fox (lucie) Contact Information [phone] Advance Directives? No History Provided By Patient,Medical Record Has Patient been admitted in last 30 No days? Prior Living Arrangements House Household Members none Type of transporation used prior to Drives own vehicle admit Independent with ADL's Yes Is patient alert and oriented? Yes Needs Assistance With Home Chores / Shopping Comment ADLs have been getting more difficult as her wound/ infection has gotten worse. Daughter helps her with cleaning/bringing her groceries. Caregiver for Another No DME Already Rented / Owned FWW / Walker,Cane,Other Comment Shower chair, ramp into house, leg elevated bed modification Patient/Family Preference Home with Home Health Barriers to Discharge No Discharge Plan Home Transportation Arrangement will drive self home Referrals Initiated Home Health If patient plan is home with home health Yes : Has signed face to face form been completed? SNF/HH Preference [facility], but is open to other options if necessary. Review Status In Process Next Review Type Continued Stay Review
--- NOTE | 2023-01-19 17:54 | PC.NURSE ---
Day shift: Patient stated My pain is so much better today. Tolerated dressing change this AM with vicodin. After dinner patient stated her dressing was saturated due to sitting up in the chair for a prolonged period of time and her leg/wound became weepy. Changed dressing again. Patient stated pain is much improved. Held BP medication this AM due to BP 91/61. Will continue to monitor.
[2023-01-19] MEDS: lisinopriL 10 MG TABLET 5 MG PO (20:39)
--- NOTE | 2023-01-19 21:49 | PC.NURSE ---
Addendum entered by Nella Jon R.N. 01/20/23 06:10: Patient states pain is 4/10 this morning but requests only 1 tab of vicodin be given; declined use of Tramadol as states it doesn't work. Addendum entered by Nella Jon R.N. 01/20/23 00:56: Patient complaining of burning, aching 8/10 pain in left LE; medicated with Vicodin Original Note: Patient is alert and oriented. Breath sounds diminished but CTA with RA sat of 93%. HR irregular; has hx of afib. Denies nausea. BT present and is passing flatus. Voiding without dysuria, frequency or urgency. Is able to turn herself in bed and walks with walker and SBA to bathroom. Does need assistance to get left leg in/out of bed but states she is able to move her leg better tonight. Skin in perineum is bruised, reddened and fragile and noted that skin is sloughing off in areas; patient believes it is related to wearing small incontinent pad so does not have pad on tonight. Left LE remains edematous and erythemic but appears less bright red tonight. States pain is much improved and rates severity as 2/10 and only hurts where open areas are on leg; dressing is CDI and leg is elevated on pillows. Refusing SCD to right LE as states it causes her leg to itch; reminded to ankle wave when awake. Fall risk score is high and bed alarm is activated.
[2023-01-20 00:08] LABS: Labcorp Hemoglobin (Hb) A1c 6.8 % (4.8-5.6)
[2023-01-20] MEDS: HYDROCODONE/ACET 5/325 TABLET 2 TAB PO ×2 (00:52→06:09)
[2023-01-20 03:55] VITALS: BP 121/74; PULSE 70; RESP 18; TEMP 37.1; O2SAT 95
[2023-01-20 06:14] LABS: Add Manual Diff / Slide Review NO; Basophils Absolute Auto 0 /uL (0-100); Basophils Percent Auto 0.7 % (0-2); Eosinophils Absolute Auto 0 /uL (0-450); Eosinophils Percent Auto 0.8 % (2-4); Hemoglobin 10.3 g/dL (12.0-16.0); Lymphocytes Absolute Auto 900 /uL (1100-4500); Lymphocytes Percent Auto 17.3 % (25-40); Mean Corpuscular HGB Conc 34.4 % (30-36); Mean Corpuscular Volume 98.6 fL (80-100); Monocytes Absolute Auto 600 /uL (0-900); Monocytes Percent Auto 10.3 % (3-14); Neutrophils Absolute Auto 3800 /uL (1500-7000); Neutrophils Percent Auto 70.9 % (50-75); Platelet Count 270 X10^3/uL (150-400); Red Blood Cell Count 3.04 X10^6/uL (4.0-5.2); Red Cell Distribution Width 15.1 % (11.6-14.8); White Blood Cell Count 5.4 X10^3/uL (4.5-11.0)
[2023-01-20] MEDS: METOPROLOL IR 25 MG TABLET PO (08:08)
[2023-01-20] MEDS: APIXABAN 5 MG TABLET PO (08:08)
[2023-01-20 08:09] VITALS: BP 118/51; PULSE 86
[2023-01-20] MEDS: SENNOSIDES 8.6 MG TABLET PO (08:09)
[2023-01-20] MEDS: lisinopriL 10 MG TABLET 5 MG PO (08:09)
[2023-01-20] MEDS: TRAMADOL 50 MG TABLET 100 MG PO (08:09)
[2023-01-20] MEDS: SODIUM CHLORIDE 0.9% FLUSH 10 ML IV (08:15)
--- NOTE | 2023-01-20 08:26 | CM.DPC ---
Addendum entered by Oneyda Oliver R.N. 01/20/23 11:07: Called [facility] and spoke to Tatiana, let her know that patient is discharging home today. Went ahead and printed out face to face, let Tatiana know that there is no current DC Summary as of yet, but can still send her prog note per her request, also, have orders. ADIN Amaya energy assistant, will observe for DC Summary and can sent to [place] when completed. Original Note: DCP Cont: Confirmed with Arianne at [facility] that she received referral, can accept patient. Also confirmed that they accept her insurance, [employer]. Confirmed that patient will need RN, P.T, O.T, BEAMING INSPECTOR, and bath aide, face to face was already sent. Will just need orders and DC Summary. P: DCP to continue to follow. Plan is home with [facility] when deemed medically stable. Oneyda Oliver RN/Trouble Locater
[2023-01-20 09:00] VITALS: BP 118/51; PULSE 86; RESP 17; TEMP 36.2; O2SAT 96
[2023-01-20] MEDS: cefTRIAXone 2,000 MG in SODIUM CHLORIDE 0.9% 100 ML 200 MG IV (10:53)
--- NOTE | 2023-01-20 11:00 | PT.IIE ---
Medical History (Last Reviewed 01/18/23 @ 10:35 by Yuliana Gonsales DO) Facet arthropathy, lumbosacral Physical Therapy Inpatient Evaluation/Re-Eval M1 PT/OT-IP Prior Functional Status Start: 01/20/23 13:19 Freq: NEEDED Status: Active Protocol: Document 01/20/23 11:00 AB (Rec: 01/20/23 13:44 AB [id number]) Medical Review Prior Functional Status Medical History Reviewed Yes Communication able to make needs known Mobility and Gait pt stated that she is modified independent with all mobilities and ambulation using a 4WW Social History Household Members none Living Arrangements House Number of Floors (Floors) One Floor Number of Stairs To Enter/Railing? ramp + 1 step to enter the house 4 steps bilateral rails to enter from the front Home Environment High Toilet,Walk in Shower, Ramp Home Equipment Four Wheel Walker,Shower Seat without Backrest,Hand Held Shower,Grab Bars In Shower Additional Social History Comment pt has an adjustable bed M2 PT-IP Current Condition Start: 01/20/23 13:19 Freq: NEEDED Status: Active Protocol: Document 01/20/23 11:00 AB (Rec: 01/20/23 13:44 AB [id number]) Physical Therapy Current Condition Current Condition Evaluation Date 01/20/23 Treatment Diagnosis LLE cellulitis; difficulty in walking Onset Date 01/18/23 M3 PT-IP Subjective Start: 01/20/23 13:19 Freq: NEEDED Status: Active Protocol: Document 01/20/23 11:00 AB (Rec: 01/20/23 13:44 AB [id number]) Subjective Physical Therapy Visit Type Type Initial Evaluation Visit Start Time 11:00 Visit Stop Time 11:50 Total Visit Minutes 50 Number of COAL LOADER Visits 0 Physical Therapy Visit Comments Patient Comments agreeable to do PT Therapy Pain Assessment Pain When Pain Assessed During Mobility Pain Present Pain Present Pain Reported Location Bilateral Knee Scale Used pain scale not stated Pain Management Techniques Distraction,Modification of Treatment,Re-positioning, Timing of Activity with Medications M4 PT-IP Mobility and Gait Start: 01/20/23 13:19 Freq: NEEDED Status: Active Protocol: Document 01/20/23 11:00 AB (Rec: 01/20/23 13:44 AB [id number]) PT-Bed Mobility Assessment Supine to Sit Supine to Sit Standby Assistance Sit to Supine Sit to Supine Standby Assistance PT-Transfer Assessment Sit to and From Stand Sit to and from Stand Standby Assistance Equipment Transfer Assistive Device Gait Belt,4 Wheeled Walker Orthotic/Prosthetic Devices or Brace: No Transfers Transfer Destination Bed,Chair Transfer Technique ambulated Transfer Ability Level of Assist Standby Assistance,Use of Upper Extremities Comments Mobility Comments pt using the toilet when PT came in and agreed to do PT. pt was able to complete toileting and handwashing without assistance. pt sat on chair. obtained PLOF and home set up. pt completed sit to stand from the chair SBA but required 2 attempts to complete. pt ambulated in room using 4WW SBA ~ 40 ft. pt then sat on the EOB and demonstrated bed mobility SBA using safety belt as leg vineyard worker. pt stated that she uses a thera band at home as a leg vineyard worker. pt initially stated that she has a ramp to enter the house but upon further inquiry, stated that she has 1 step after the ramp to enter th house with 2 posts that she pulls herself up to step up. attempted up/down platform with pt using the counter andn foot of the bed for support but unable. pt stated that her posts are taller. attempted up/down step again using edge of door as posts but pt again unable to complete. stated that it is more of her knees that has chronic pain from arthritis. pt then stated that she can go in from the front door but has 4 steps with bilateral rails. pt ambulated from bed to w/c using 4WW SBA ~ 20 ft. assisted pt towards the stairs . pt completed up/down steps using bilateral rails SBA to CGA. assisted pt back to her room. ambulated from w/c to chair using 4WW SBA. call light and table placed within reach. pt agreed to use front steps to enter the house and stated that she will have her friend and friends spouse to assist her at home. Gait Assessment Gait Gait Assistance Required: Standby Assistance Distance (Feet) 40 Assistive Devices Assistive Device Gait Belt,4 Wheeled Walker Orthotic/Prosthetic Devices or Brace: No Gait Deviations General Gait Pattern Antalgic,Decreased Stride Length,Decreased Feet Clearance,Step-to Gait Factors Limiting Gait Function Factors Limiting Gait Function Decreased Activity Tolerance, Decreased Strength,Limited Range of Motion,Pain,Poor Balance Stair Climbing Assessment Evaluation Level of Assist On Stairs Standby Assistance,Contact Guard Assistance Devices Stair Climbing Assistive Devices Left Railing,Right Railing Technique/Endurance Stair Climbing Direction Ascend and Descend Stair Climbing Technique Step to Step Number of Steps Climbed 3 Query Text: Stair Climbing Set # Repetitions (reps) 1 PT-Balance Assessment Sitting Balance and Reactions Static Sitting Balance Ability Normal Dynamic Sitting Balance Ability Normal Standing Balance and Reactions Static Standing Balance Ability Fair Dynamic Standing Balance Ability Fair Device Used 4WW M5 PT-IP Objective Assessments Start: 01/20/23 13:19 Freq: NEEDED Status: Active Protocol: Document 01/20/23 11:00 AB (Rec: 01/20/23 13:44 AB [id number]) Orientation Orientation/Cognition Level of Alertness Alert Orientation Name,Place,Situation Language Function Ability No Deficits Noted Safety Awareness Decreased Safety Awareness Memory Description No Deficits Noted Strength Lower Extremity Strength Hip 4-/5 Knee 4-/5 Muscle Tone Muscle Tone WNL Yes Other Assessments Other Other Assessments L lower leg swelling and redenss M6 PT-IP Treatment Start: 01/20/23 13:19 Freq: NEEDED Status: Active Protocol: Document 01/20/23 11:00 AB (Rec: 01/20/23 13:44 AB [id number]) Physical Therapy Treatment Education Education Provided Safety M7 PT-IP Assessment and Plan Start: 01/20/23 13:19 Freq: NEEDED Status: Active Protocol: Document 01/20/23 11:00 AB (Rec: 01/20/23 13:44 AB [id number]) PT Summary Assessment and Plan Potential Rehabilitation Potential Good Status of Condition at Evaluation Stable Summary Impairments Pain,ROM,Strength,Balance, Coordination,Sensation,Tone, Cognition,Bed Mobility, Transfers,Gait,Activity Tolerance Assessment Summary pt requiring SBA with mobility using 4WW. pt lives alone and will need home health services. pt has difficulty with stair climbing and will have her friend assist her upon d/c for safety. Goals Bed Mobility Goal Independent Transfer Goal Independent,Four Wheeled Walker Gait Goal Independent,Four Wheel Walker Gait Distance 100 Other Goals up/down 4 steps B rails mod I up/down 1 step using 2 posts SBA Days to Meet Goals 5 Frequency of Treatment Frequency Of Treatment Once a Day Treatment Plan Physical Therapy Treatment Plan Bed Mobility Training,Transfer Training,Gait Training, Therapeutic Exercise,Balance Retraining,Post Op Education, Discharge Planning,Hot or Cold Pack,Neuromuscular Re-ed, Coordination Retraining,Manual Therapy Recommendations To Nursing Amount of Assist Needed Standby Assistance Discharge Recommendations PT Discharge Recommendations Home with Assistance,Home Health Transportation Needs at Discharge Private Vehicle
--- NOTE | 2023-01-20 13:57 | PC.NURSE ---
Pt is dressed and ready for discharge, she has all belongings with her. Iv has been removed. Discharge information has been reviewed including information on cellulitis, wound care, dressing change and limb elevation as well as patient portal and stroke education. Medications were reviewed and pt denied any further questions. She was taken by w/c to personal vehicle and was driven home by friend.
--- NOTE | 2023-01-21 13:14 | P.DS_ITS ---
History of Present Illness History of Present Illness Chief complaint: infection on Lt leg Narrative: 67-year-old female with permanent atrial fibrillation on Eliquis anticoagulation, eczema, questionable rheumatoid arthritis, and chronic lymphedema (left greater than right) who presented to the emergency department with ongoing pain, swelling, redness and wound to the left lower extremity as well as fevers, chills, nausea and dry heaving Patient reports she has been having difficulties with lymphedema since the fall. She notes that around October of this year the left 1 appeared to be worse. She was having weeping edema and noted she would wake up at night rubbing her leg against the sheets due to itching. She was seen by her primary care provider, underwent ultrasound which showed no DVT. She was then referred to wound care as she would developed 2 small ulcers, 1 on the couch, and 1 on the calf. She is been [facility] a [facility]. It has been managed with Xeroform gauze dressings. She notes she would a similar wound on the right leg which has since resolved. Over the past couple of weeks, she is had increasing redness, pain, swelling, fevers and chills. She notes that the onset of her symptoms, she would a fever as high as 104. She states she went into the walk-in clinic on [facility] on January 09. She was given a prescription for Keflex and advised to return for recheck if she had no improvement. She notes she would continued pain and worsening symptoms and subsequently presented to [facility] on January 12. She states wound were taken there and she was subsequently given a prescription of doxycycline. She has taken that for the last 6 days but has again had no improvement. She reports she had a fever of 101 yesterday. She also has had dry heaves and states she was able to take in very little yesterday. She complains of chills and sweats. Today, she reports her appetite is improving and she is actually hungry. No chest pain or shortness of breath. She notes that she is been told there is a vascular surgery procedure that ?cures lymphedema ?. She has had an intake with that vascular surgeon's office, which is in [place]. She notes she has an appointment in approximately 1-1/2 weeks to be evaluated further. She reports she does have an adjustable bed at home and has been elevating her leg regularly. However, as the pain has continued to worsen she is had more difficulty with her ADLs. 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 Left leg cellulitis 2. Lymphedema 3. Chronic leg wounds 4. Hyperglycemia 5. Atrial fibrillation 6. Hypertension 7. Morbid obesity Hospital Course: Ms. Gayle presented to the hospital with infected left leg with cellulitis, likely secondary to lymphedema and chronic leg wounds. She improved on antibiotics and ultimately was discharged with a week of doxycycline. She was given a short course of pain medications to control her leg pain. In addition she was hyperglycemic in the hospital, a1c resulted as 6.8% and she should talk to her physician about whether she should start medications. She is planning to return to wound care for her lymphedema and leg wounds. Her wounds did not appear to be infected. She was encouraged to follow up with her PCP within one week. Exam Vital Signs (past 8 hours): Oxygen Delivery Method Room Air Oxygen Flow Rate 0 Narrative Exam Narrative: GEN:? no acute distress CHEST:?clear bilaterally CV:? Regular rate and rhythm, no murmurs ABD:? Soft, nontender, nondistended EXT:? Warm, well perfused, left lower extremity with significant lymphedema, erythema of her leg below knee with superficial ulcerations on both her anterior and posterior lower leg Objective Labs 01/20/23 05:56 01/19/23 06:06 [facility] Medical History (Updated 01/18/23 @ 12:21 by Yuliana Gonsales DO) Facet arthropathy, lumbosacral Family History Mother Stroke Sister Uterine cancer Social History household members: none Smoking Status: Former smoker alcohol intake: current Discharge Plan Discharge Plan Patient Disposition: Home Provider Discharge Comment: Ms. Gayle was admitted with a swollen infected leg (cellulitis). She improved with antibiotics and should take them for another week. She should follow up with her PCP and wound care within one week. Discharge orders & Medications Prescriptions: New hydrocodone-acetaminophen 5-325 mg Tablet 1 tab PO Q4HR PRN (Reason: pain) Qty: 16 0RF doxycycline hyclate 100 mg capsule 100 mg PO BID Qty: 14 0RF Continued Metoprolol Tartrate (Lopressor) 25 mg PO BID Qty: 0 lisinopril 10 mg tablet 5 mg PO BID Eliquis 5 mg tablet 5 mg PO BID hydrocodone-acetaminophen 5-325 mg tablet 1 tab PO Q6H PRN (Reason: Pain (Scale Score 4-6)) Qty: 16 0RF Patient Comments: take 1 tablet by mouth every 6 hours NEEDED FOR PAIN Follow up/Referrals: [facility] [Provider Group] (left leg ulcers) Lizzy Negro ARNP [Primary Care Provider] - 3-5 Days (follow up for cellu litis) Diet/Activity/Treatments Diet: Regular Visit Report/Discharge Packet Instructions: DI for Cellulitis -- Adult, Doxycycline (By mouth), Hydrocodone/Acetaminophen (By mouth) Stand Alone Forms: Patient Portal/API, Stroke Signs & Symptoms Discharge Data Primary Care Provider: Lizzy Negro Attending Provider: Shruthi Deshpande Admit Date/Time: 01/18/23 12:21 Discharges patient from system. Discharge Date/Time: 01/20/23 14:00 Quality VTE Deep Vein Thrombosis/Pulmonary Embolism Present on Admission: No
== END 2023-01-20 14:00 | disposition home or self-care (01) ==
LOC: ED 12:21 → AC 12:22
PROVIDERS: Admitting Provider Family Medicine; Emergency Provider Emergency Medicine; Family Provider Nurse Practitioner Family; PCP Nurse Practitioner Family; Visit Provider Family Medicine
DX: L03.116 Cellulitis of left lower limb (principal); E66.01 Morbid (severe) obesity due to excess calories; Z68.43 Body mass index [BMI] 50.0-59.9, adult; R59.1 Generalized enlarged lymph nodes; Z79.01 Long term (current) use of anticoagulants; I48.91 Unspecified atrial fibrillation; R73.9 Hyperglycemia, unspecified; I10 Essential (primary) hypertension
CPT/HCPCS: 36415; 80048; 80053; 83036; 83605; 84145; 85007; 85025; 87040; 87797; 96365; 96366; 96367; 96375; 97116; 97161; 99284; G0378; J0696; J1170; J2405

== ENCOUNTER 2023-06-08 08:45 | Outpatient (RCR) | payer OTHER, MEDICAID, SELFPAY ==
[2023-01-18 13:04] VITALS: BMI 59.4
--- NOTE | 2023-04-29 16:10 | PT.OIE ---
Current Diagnoses Type 2 diabetes mellitus without complications (04/29/23) Venous insufficiency (chronic) (peripheral) (04/29/23) Lymphedema, not elsewhere classified (04/29/23) Cellulitis of left lower limb (04/29/23) Past Medical History (Last Reviewed 01/18/23 @ 10:35 by Yuliana Gonsales DO) Facet arthropathy, lumbosacral Visit Care Team Role Provider Type NISA Anne Family Provider Non-Staff Primary Care Provider Specialty: Medical Address: [address] [place] [address], [phone] Email: NISA Gross Attending Provider Non-Staff Referring Provider Specialty: Nursing Address: [address] [place] [address], [id number] Email: Physical Therapy Initial Evaluation PT-OP-A Visit Information Start: 04/29/23 07:55 Freq: Status: Active Protocol: Document 04/29/23 08:47 SAK (Rec: 04/29/23 10:18 SAK [id number]) Out-Patient Physical Therapy Visit Information Visit Information Visit Type Discharge Summary Visit Start Time 08:47 Visit Stop Time 10:13 Total Visit Minutes 84 Visit Number 1 Evaluation Information Evaluation Date 04/29/23 Precautions Precautions a-fib skin allergies; elastic, rubber PT-OP-B Current Condition Start: 04/29/23 07:55 Freq: Status: Active Protocol: Document 04/29/23 08:47 SAK (Rec: 04/29/23 10:18 SAK [id number]) Current Condition History of Current Condition Onset Date October 2022 Current Complaints left LE lymphedema History of Current Condition Just came on; swelling and leaking of fluid, wound. Went to wound care at [facility] for a few months, no change in wounds, then developed cellulitis in January 2023. Had to have 2 rounds of antibiotics. Admitted to [facility] for IV and then oral antibiotics at home. Also diagnosed with DM, now controlled with injections. Wounds now healed , no leaking of fluid. Has dropped about 35 lbs. Doing PT at IR in [place] for LE strengthening and balance. Has thigh high open toe 20-30 mm Hg compression stocking left but doesn't stay up so is more of knee high. Also elevates left UE. States she was given a pump from wound care, has not used due to difficulty donning. Will bring next session Does HEP 3x/wk. Uses 4WW. 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 Function- Recreation/Hobbies minimal due to limited income Current Functional Impairments (Reported) Functional Limitations- ADL's increased time and difficulty Functional Limitations- Mobility/Gait uses 4WW Functional Limitations- Work/School retired Functional Limitations- Recreation/ minimal Hobbies PT-OP-C Subjective Start: 04/29/23 07:55 Freq: Status: Active Protocol: Document 04/29/23 08:47 [facility] (Rec: 04/29/23 16:09 [facility] [id number]) Patient Questionnaires Lymphedema Life Impact Score Lymphedema Score 49 PT-OP-J Posture/Palpation/Skin Start: 04/29/23 07:55 Freq: Status: Active Protocol: Document 04/29/23 08:47 [facility] (Rec: 04/29/23 10:18 [facility] [id number]) Skin Assessment Edema Assessment Left Leg Edema Appearance Discolored,Taut Comments fibrosis present lower leg ebenezer left greater than right dry, patchy areas of skin no open or weeping areas. Other Assessments Skin Assessment Comments see circumferential measurement under lymhedema. PT-OP-K Range of Motion Start: 04/29/23 07:55 Freq: Status: Active Protocol: Document 04/29/23 08:47 [facility] (Rec: 04/29/23 10:18 [facility] [id number]) Hip Goniometric Range of Motion Hip ebenezer Hip ROM WFL Yes Knee Goniometric Range of Motion Knee ebenezer Knee ROM WFL Yes Ankle and Foot Goniometric Range of Motion Ankle and Foot ebenezer Ankle/Foot ROM WFL No Ankle and Foot ROM Limitations ROM Limitations Soft Tissue Tightness,Swelling PT-OP-N Lymphedema Start: 04/29/23 07:55 Freq: Status: Active Protocol: Document 04/29/23 08:47 [facility] (Rec: 04/29/23 10:18 [facility] [id number]) Lymphedema Measurements Lower Extremity Circumference Measurements Right Unaffected MT Heads 24.7 cm Mid-foot 26 cm Medial Malleolus 32.5 cm 10 cm From Medial Malleolus 36.1 cm 20 cm From Medial Malleolus 44.7 cm 30 cm From Medial Malleolus 49.5 cm 40 cm From Medial Malleolus 54 cm 50 cm From Medial Malleolus 64.2 cm 60 cm From Medial Malleolus 74.7 cm Knee Joint 51.3 cm Left Affected MT Heads 25 cm Mid-foot 26.3 cm Medial Malleolus 33.9 cm 10 cm From Medial Malleolus 42.2 cm 20 cm From Medial Malleolus 51.5 cm 30 cm From Medial Malleolus 49.2 cm 40 cm From Medial Malleolus 53.7 cm 50 cm From Medial Malleolus 67.8 cm 60 cm From Medial Malleolus 73.4 cm Knee Joint 53.7 cm - from anterior ankle crease PT-OP-Q Treatments Start: 04/29/23 07:55 Freq: Status: Active Protocol: Document 04/29/23 08:47 [facility] (Rec: 04/29/23 16:09 [facility] [id number]) Lymphedema Treatment Lymphedema Wrapping Other discussed benefit and consideration for treatment Patient Education Compression Garments discussed options, shown online Self Manual Lymphatic Drainage initial instruction and issued handout Sequential Lymphedema Exercises initial instruction and issued handout PT-OP-T Assessment and Plan Start: 04/29/23 07:55 Freq: Status: Active Protocol: Document 04/29/23 08:47 [facility] (Rec: 04/29/23 10:18 [facility] [id number]) Physical Therapy Assessment Rehab Potential Rehabilitation Potential Good Evaluation Complexity Number of Personal Factors/Comorbidities 1-2 Number of Body Systems Impaired 3 Clinical Presentation at Evaluation Evolving Impairments Impairments Edema Goals Two Impairment Patient has difficulty with donning and doffing compression garments correc Short Term Goal (STG) Patient to be instructed in adaptive methods for donning and doffing compression garments STG Duration 06/16/23 Veterinary Inspector Goal (LTG) Patient to be independent in donning correctly and doffing her compression garments LTG Duration 07/29/23 One Impairment Lymphedema left LE Impairment Circumferrential measurements significantly higher left vs right though also has skin changes and swelling right LE which appear to be developing lymphedema as well. Short Term Goal (STG) Patient to be instructed in all aspects of lymphedema care to include skin care, manual lymphatic drainage, compression and lymphedema exercises STG Duration 06/16/23 Veterinary Inspector Goal (LTG) Decrease lymphedema to a stable level (no increase or decrease greater than 1 cm). Patient to be independent in all aspects of lymphedema care and obtain appropriate compression garments for self management. LTG Duration 07/29/23 Assessment Summary Assessment Patient presents to PT with function-limiting lymphedema left LE and it appears may be developing in right LE as well with some redness and increased warmth which could be developing cellulitis. Patient urged to wear one of her current compression stockings on her right in addition to the left and to consult with physician if symptoms worsen. Educated patient that for most effective compression she will need better quality compression stockings that have silicone at the top so they will stay up on her thigh as recommend thigh-high; her current thigh high stockings slide down and are only effective as a knee high. Importance of correct fit stressed for best effect and response. Feel she would benefit from physical therapy for lymphedema management to include skin care, manual lymphatic drainage, compression, and lymphedema exercises. Patient reports she has a sequential pneumatic pump obtained for her by [facility] wound care department but she hasn't yet used due to feeling she will be unable to don on her own; will need instruction in safe use of that as well to assist her in her lymphedema management. We will consider bandaging LE's but patient states she is not sure she will be able to do on her own. Will need to consider compression alternatives. Patient is at high risk for further episodes of cellulitis without treatment. POC was discussed and patient was in agreement. Physical Therapy Plan Frequency and Duration Frequency of Treatment 1x/Week Duration of treatment (weeks) 12 Plan of Care Start Date 04/29/23 Plan of Care End Date 07/29/23 Therapeutic Interventions Therapeutic Interventions Home Exercise Program, Lymphedema Management,Patient/ Caregiver Education,Self-Care/ Home Management,Soft Tissue Mobilization,Taping, Therapeutic Activities, Therapeutic Exercises Modalities Vasopneumatic Devices Next Visit Focus/Plan Next Note Type Treatment Note Next Visit Plan Patient to bring sequential pneumatic pump for instruction in use at home. MLD with patient instruction for self- massage, review lymphedema exercises, provide skin care. Further discussion of compression garments.
--- NOTE | 2023-04-29 16:10 | PT.OPPOC ---
Physical, Occupational & Speech Therapy At [facility] Current Diagnoses Type 2 diabetes mellitus without complications (04/29/23) Venous insufficiency (chronic) (peripheral) (04/29/23) Lymphedema, not elsewhere classified (04/29/23) Cellulitis of left lower limb (04/29/23) Visit Care Team Role Provider Type NISA Anne Family Provider Non-Staff Primary Care Provider Specialty: Medical Address: [address] [place] [address], [phone] Email: NISA Gross Attending Provider Non-Staff Referring Provider Specialty: Nursing Address: [address] [place] [address], [id number] Email: Plan Of Care PT-OP-T Assessment and Plan Start: 04/29/23 07:55 Freq: Status: Active Protocol: Document 04/29/23 08:47 [facility]AK (Rec: 04/29/23 10:18 SAK [id number]) Physical Therapy Assessment Rehab Potential Rehabilitation Potential Good Evaluation Complexity Number of Personal Factors/Comorbidities 1-2 Number of Body Systems Impaired 3 Clinical Presentation at Evaluation Evolving Impairments Impairments Edema Goals Two Impairment Patient has difficulty with donning and doffing compression garments [facility] Short Term Goal (STG) Patient to be instructed in adaptive methods for donning and doffing compression garments STG Duration 06/16/23 Manager Lab Goal (LTG) Patient to be independent in donning correctly and doffing her compression garments LTG Duration 07/29/23 One Impairment Lymphedema left LE Impairment Circumferrential measurements significantly higher left vs right though also has skin changes and swelling right LE which appear to be developing lymphedema as well. Short Term Goal (STG) Patient to be instructed in all aspects of lymphedema care to include skin care, manual lymphatic drainage, compression and lymphedema exercises STG Duration 06/16/23 Manager Lab Goal (LTG) Decrease lymphedema to a stable level (no increase or decrease greater than 1 cm). Patient to be independent in all aspects of lymphedema care and obtain appropriate compression garments for self management. LTG Duration 07/29/23 Assessment Summary Assessment Patient presents to PT with function-limiting lymphedema left LE and it appears may be developing in right LE as well with some redness and increased warmth which could be developing cellulitis. Patient urged to wear one of her current compression stockings on her right in addition to the left and to consult with physician if symptoms worsen. Educated patient that for most effective compression she will need better quality compression stockings that have silicone at the top so they will stay up on her thigh as recommend thigh-high; her current thigh high stockings slide down and are only effective as a knee high. Importance of correct fit stressed for best effect and response. Feel she would benefit from physical therapy for lymphedema management to include skin care, manual lymphatic drainage, compression, and lymphedema exercises. Patient reports she has a sequential pneumatic pump obtained for her by [facility] wound care department but she hasn't yet used due to feeling she will be unable to don on her own; will need instruction in safe use of that as well to assist her in her lymphedema management. We will consider bandaging LE's but patient states she is not sure she will be able to do on her own. Will need to consider compression alternatives. Patient is at high risk for further episodes of cellulitis without treatment. POC was discussed and patient was in agreement. Physical Therapy Plan Frequency and Duration Frequency of Treatment 1x/Week Duration of treatment (weeks) 12 Plan of Care Start Date 04/29/23 Plan of Care End Date 07/29/23 Therapeutic Interventions Therapeutic Interventions Home Exercise Program, Lymphedema Management,Patient/ Caregiver Education,Self-Care/ Home Management,Soft Tissue Mobilization,Taping, Therapeutic Activities, Therapeutic Exercises Modalities Vasopneumatic Devices Next Visit Focus/Plan Next Note Type Treatment Note Next Visit Plan Patient to bring sequential pneumatic pump for instruction in use at home. MLD with patient instruction for self- massage, review lymphedema exercises, provide skin care. Further discussion of compression garments. Plan of Care Dates Plan of Care Start Date 04/29/23 Plan of Care End Date 07/29/23 Electronically Signed by: Alysha Roth, PT 04/29/23 2589 If you are in agreement with this Plan of Care, please return a signed and dated copy. I have reviewed this Plan of Care and certify that the skilled therapy services above are required to meet the patient?s needs. Physician Signature Date Printed Name and Credentials Clinical Instructor Signature Printed Name and Credentials
--- NOTE | 2023-05-11 13:28 | PT-OP ANOTE ---
cancelled due to flat tire
--- NOTE | 2023-05-25 14:06 | PT.OTN ---
Current Diagnoses Type 2 diabetes mellitus without complications (05/25/23) Venous insufficiency (chronic) (peripheral) (05/25/23) Lymphedema, not elsewhere classified (05/25/23) Cellulitis of left lower limb (05/25/23) Physical Therapy Treatment Note PT-OP-A Visit Information Start: 04/29/23 07:55 Freq: Status: Active Protocol: Document 05/25/23 13:20 SAK (Rec: 05/25/23 14:04 [facility] [id number]) Out-Patient Physical Therapy Visit Information Visit Information Visit Type Treatment Note Visit Start Time 13:20 Visit Stop Time 14:45 Total Visit Minutes 85 Visit Number 2 Evaluation Information Evaluation Date 04/29/23 Precautions Precautions a-fib skin allergies; elastic, rubber PT-OP-B Current Condition Start: 04/29/23 07:55 Freq: Status: Active Protocol: Document 05/25/23 13:20 SAK (Rec: 05/25/23 14:04 [facility] [id number]) Current Condition History of Current Condition Onset Date October 2022 Current Complaints left LE lymphedema History of Current Condition Just came on; swelling and leaking of fluid, wound. Went to wound care at [facility] for a few months, no change in wounds, then developed cellulitis in January 2023. Had to have 2 rounds of antibiotics. Admitted to [facility] for IV and then oral antibiotics at home. Also diagnosed with DM, now controlled with injections. Wounds now healed , no leaking of fluid. Has dropped about 35 lbs. Doing PT at IR in [place] for LE strengthening and balance. Has thigh high open toe 20-30 mm Hg compression stocking left but doesn't stay up so is more of knee high. Also elevates left UE. States she was given a pump from wound care, has not used due to difficulty donning. Will bring next session Does HEP 3x/wk. Uses 4WW. Prior Treatments and Tests as above Treatment Goals Patient/Caregiver Goals Decrease edema and be able to self manage, prevent further complications PT-OP-C Subjective Start: 04/29/23 07:55 Freq: Status: Active Protocol: Document 05/25/23 13:20 SAK (Rec: 05/25/23 14:04 SAK [id number]) OP-PT Subjective Patient Comments Patient Comments Brought her pump, hasn't used yet. Reports red color in legs is from skin condition, was given ointment, has started using. Doing better at elevting her legs. Doing exercises as much as I can PT-OP-J Posture/Palpation/Skin Start: 04/29/23 07:55 Freq: Status: Active Protocol: Document 04/29/23 08:47 [facility] (Rec: 04/29/23 10:18 [facility] [id number]) Skin Assessment Edema Assessment Left Leg Edema Appearance Discolored,Taut Comments fibrosis present lower leg ebenezer left greater than right dry, patchy areas of skin no open or weeping areas. Other Assessments Skin Assessment Comments see circumferential measurement under lymhedema. PT-OP-K Range of Motion Start: 04/29/23 07:55 Freq: Status: Active Protocol: Document 04/29/23 08:47 [facility] (Rec: 04/29/23 10:18 [facility] [id number]) Hip Goniometric Range of Motion Hip ebenezer Hip ROM WFL Yes Knee Goniometric Range of Motion Knee ebenezer Knee ROM WFL Yes Ankle and Foot Goniometric Range of Motion Ankle and Foot ebenezer Ankle/Foot ROM WFL No Ankle and Foot ROM Limitations ROM Limitations Soft Tissue Tightness,Swelling PT-OP-N Lymphedema Start: 04/29/23 07:55 Freq: Status: Active Protocol: Document 05/25/23 13:20 [facility] (Rec: 05/25/23 14:04 [facility] [id number]) Lymphedema Measurements Lower Extremity Circumference Measurements Right Unaffected MT Heads 24.1 cm Mid-foot 25.8 cm Medial Malleolus 33 cm 10 cm From Medial Malleolus 34.8 cm 20 cm From Medial Malleolus 43.5 cm 30 cm From Medial Malleolus 49 cm 40 cm From Medial Malleolus 53.8 cm 50 cm From Medial Malleolus 63.9 cm 60 cm From Medial Malleolus 75 cm Knee Joint 52.7 cm Left Affected MT Heads 25.6 cm Mid-foot 26.2 cm Medial Malleolus 33.7 cm 10 cm From Medial Malleolus 40 cm 20 cm From Medial Malleolus 49.1 cm 30 cm From Medial Malleolus 49 cm 40 cm From Medial Malleolus 52.4 cm 50 cm From Medial Malleolus 67.8 cm 60 cm From Medial Malleolus 75 cm Knee Joint 52.4 cm - from anterior ankle crease PT-OP-Q Treatments Start: 04/29/23 07:55 Freq: Status: Active Protocol: Document 05/25/23 13:20 [facility] (Rec: 05/25/23 14:04 [facility] [id number]) Lymphedema Treatment Lymphedema Wrapping Other compression stocking left ( didn't bring for right) Sequential Lymphedema Exercises Duration 5 reps ea Compression Garment Assessment Compression Garment Assessment Details Good fit, instructed in potential layering of compression stockings if not adequate. Discussed options. PT-OP-R Modalities Start: 04/29/23 07:55 Freq: Status: Active Protocol: Document 05/25/23 13:20 [facility] (Rec: 05/25/23 14:06 [facility] [id number]) Compression Pump Treatment Treatment Location eebnezer LE's Treatment Duration (minutes) 60 Treatment Tolerance Good Treatment Comments pre-programmed in pump, no indication. PT-OP-T Assessment and Plan Start: 04/29/23 07:55 Freq: Status: Active Protocol: Document 05/25/23 13:20 [facility] (Rec: 05/25/23 14:04 [facility] [id number]) Physical Therapy Assessment Goals Two Impairment Patient has difficulty with donning and doffing compression garments [facility] Short Term Goal (STG) Patient to be instructed in adaptive methods for donning and doffing compression garments STG Duration 06/16/23 [facility] Goal (LTG) Patient to be independent in donning correctly and doffing her compression garments LTG Duration 07/29/23 One Impairment Lymphedema left LE Impairment Circumferrential measurements significantly higher left vs right though also has skin changes and swelling right LE which appear to be developing lymphedema as well. Short Term Goal (STG) Patient to be instructed in all aspects of lymphedema care to include skin care, manual lymphatic drainage, compression and lymphedema exercises STG Duration 06/16/23 [facility] Goal (LTG) Decrease lymphedema to a stable level (no increase or decrease greater than 1 cm). Patient to be independent in all aspects of lymphedema care and obtain appropriate compression garments for self management. LTG Duration 07/29/23 Assessment Summary Assessment Good compliance to HEP, skin care, wearing compression. Tried compression pump ( [employer]) x 1. Patient educated in correct use and trialed in PT with good tolerance and response with decrease in circumferential measurements. Physical Therapy Plan Frequency and Duration Frequency of Treatment 1x/Week Duration of treatment (weeks) 12 Plan of Care Start Date 04/29/23 Plan of Care End Date 07/29/23 Therapeutic Interventions Therapeutic Interventions Home Exercise Program, Lymphedema Management,Patient/ Caregiver Education,Self-Care/ Home Management,Soft Tissue Mobilization,Taping, Therapeutic Activities, Therapeutic Exercises Modalities Vasopneumatic Devices Next Visit Focus/Plan Next Note Type Treatment Note Next Visit Plan Circumferential measurements, check compliance with pump, all aspects of lymphedema care .
--- NOTE | 2023-06-02 08:14 | PT.OTN ---
Current Diagnoses Type 2 diabetes mellitus without complications (06/02/23) Venous insufficiency (chronic) (peripheral) (06/02/23) Lymphedema, not elsewhere classified (06/02/23) Cellulitis of left lower limb (06/02/23) Physical Therapy Treatment Note PT-OP-A Visit Information Start: 04/29/23 07:55 Freq: Status: Active Protocol: Document 06/02/23 10:29 SAK (Rec: 06/02/23 11:34 [facility] [id number]) Out-Patient Physical Therapy Visit Information Visit Information Visit Type Treatment Note Visit Start Time 10:30 Visit Stop Time 01:55 Total Visit Minutes 85 Visit Number 3 Evaluation Information Evaluation Date 04/29/23 Precautions Precautions a-fib skin allergies; elastic, rubber PT-OP-B Current Condition Start: 04/29/23 07:55 Freq: Status: Active Protocol: Document 06/02/23 10:29 SAK (Rec: 06/02/23 11:34 SAK [id number]) Current Condition History of Current Condition Onset Date October 2022 Current Complaints left LE lymphedema History of Current Condition Just came on; swelling and leaking of fluid, wound. Went to wound care at [facility] for a few months, no change in wounds, then developed cellulitis in January 2023. Had to have 2 rounds of antibiotics. Admitted to [facility] for IV and then oral antibiotics at home. Also diagnosed with DM, now controlled with injections. Wounds now healed , no leaking of fluid. Has dropped about 35 lbs. Doing PT at IR in [place] for LE strengthening and balance. Has thigh high open toe 20-30 mm Hg compression stocking left but doesn't stay up so is more of knee high. Also elevates left UE. States she was given a pump from wound care, has not used due to difficulty donning. Will bring next session Does HEP 3x/wk. Uses 4WW. Prior Treatments and Tests as above Treatment Goals Patient/Caregiver Goals Decrease edema and be able to self manage, prevent further complications PT-OP-C Subjective Start: 04/29/23 07:55 Freq: Status: Active Protocol: Document 06/02/23 10:29 SAK (Rec: 06/02/23 11:34 SAK [id number]) OP-PT Subjective Patient Comments Patient Comments Used pump a couple times, had company for a few days. Didn' t wear compression for a couple hours this am. Can't afford more compression stockings right now. Has been doing therapeutic exercises as instructed. PT-OP-J Posture/Palpation/Skin Start: 04/29/23 07:55 Freq: Status: Active Protocol: Document 04/29/23 08:47 SAK (Rec: 04/29/23 10:18 [facility] [id number]) Skin Assessment Edema Assessment Left Leg Edema Appearance Discolored,Taut Comments fibrosis present lower leg ebenezer left greater than right dry, patchy areas of skin no open or weeping areas. Other Assessments Skin Assessment Comments see circumferential measurement under lymhedema. PT-OP-K Range of Motion Start: 04/29/23 07:55 Freq: Status: Active Protocol: Document 04/29/23 08:47 SAK (Rec: 04/29/23 10:18 [facility] [id number]) Hip Goniometric Range of Motion Hip ebenezer Hip ROM WFL Yes Knee Goniometric Range of Motion Knee ebenezer Knee ROM WFL Yes Ankle and Foot Goniometric Range of Motion Ankle and Foot ebenezer Ankle/Foot ROM WFL No Ankle and Foot ROM Limitations ROM Limitations Soft Tissue Tightness,Swelling PT-OP-N Lymphedema Start: 04/29/23 07:55 Freq: Status: Active Protocol: Document 06/02/23 10:29 SAK (Rec: 06/02/23 11:34 [facility] [id number]) Lymphedema Measurements Lower Extremity Circumference Measurements Right Unaffected MT Heads 25.3 cm Mid-foot 26.3 cm Medial Malleolus 32.2 cm 10 cm From Medial Malleolus 36.6 cm 20 cm From Medial Malleolus 46.2 cm 30 cm From Medial Malleolus 49.5 cm 40 cm From Medial Malleolus 55.2 cm 50 cm From Medial Malleolus 64.3 cm 60 cm From Medial Malleolus 77 cm Knee Joint 52.1 cm - measured from anterior ankle crease Left Affected MT Heads 25.6 cm Mid-foot 26.5 cm Medial Malleolus 34 cm 10 cm From Medial Malleolus 40.6 cm 20 cm From Medial Malleolus 49 cm 30 cm From Medial Malleolus 49.8 cm 40 cm From Medial Malleolus 53.7 cm 50 cm From Medial Malleolus 67.2 cm 60 cm From Medial Malleolus 74.7 cm Knee Joint 53.8 cm - from anterior ankle crease PT-OP-Q Treatments Start: 04/29/23 07:55 Freq: Status: Active Protocol: Document 06/02/23 10:29 SAK (Rec: 06/02/23 11:34 [facility] [id number]) Cardio Equipment Recumbent Stepper (Sci-Fit) Duration (Minutes) 5 Resistance 1 Seat Position 11 Therapeutic Activity Therapeutic Activity bed mobility with pump donned Reps/Minutes 8 min Comments min assist and cues Lymphedema Treatment Manual Lymphatic Drainage Location for ebenezer LE lymphedema Comments review self massage Lymphedema Wrapping Other compression stocking left ( didn't bring for right) Sequential Lymphedema Exercises Duration 5 reps ea Compression Garment Assessment Compression Garment Assessment Details compression stocking for left leg only today, stressed importance of wearing on both Patient Education Compression Garments reviewed importance, options Self Manual Lymphatic Drainage reviewed Sequential Lymphedema Exercises reviewed PT-OP-R Modalities Start: 04/29/23 07:55 Freq: Status: Active Protocol: Document 06/02/23 10:29 SAK (Rec: 06/02/23 11:34 [facility] [id number]) Compression Pump Treatment Treatment Location ebenezer LE's Pressure Amount (mmHg) (mmHG) 50 Inflation Time (Seconds) 30 Deflation Time (Seconds) 10 Treatment Duration (minutes) 60 Treatment Tolerance Good PT-OP-T Assessment and Plan Start: 04/29/23 07:55 Freq: Status: Active Protocol: Document 06/02/23 10:29 SAK (Rec: 06/02/23 11:34 [facility] [id number]) Physical Therapy Assessment Goals Two Impairment Patient has difficulty with donning and doffing compression garments corre Short Term Goal (STG) Patient to be instructed in adaptive methods for donning and doffing compression garments STG Duration 06/16/23 Research Lab Assistant Goal (LTG) Patient to be independent in donning correctly and doffing her compression garments LTG Duration 07/29/23 One Impairment Lymphedema left LE Impairment Circumferrential measurements significantly higher left vs right though also has skin changes and swelling right LE which appear to be developing lymphedema as well. Short Term Goal (STG) Patient to be instructed in all aspects of lymphedema care to include skin care, manual lymphatic drainage, compression and lymphedema exercises STG Duration 06/16/23 Senior Care Goal (LTG) Decrease lymphedema to a stable level (no increase or decrease greater than 1 cm). Patient to be independent in all aspects of lymphedema care and obtain appropriate compression garments for self management. LTG Duration 07/29/23 Assessment Summary Assessment Lower compliance to self care program, mostly increased circumferential measurements. Patient didn't wear compression part of this am; instructed in need for good compliance with all aspects of home program. Practiced donning compression leg and getting into bed safely to be able to use while in bed for improved compliance. Patient demonstrated good understanding. Physical Therapy Plan Frequency and Duration Frequency of Treatment 1x/Week Duration of treatment (weeks) 12 Plan of Care Start Date 04/29/23 Plan of Care End Date 07/29/23 Therapeutic Interventions Therapeutic Interventions Home Exercise Program, Lymphedema Management,Patient/ Caregiver Education,Self-Care/ Home Management,Soft Tissue Mobilization,Taping, Therapeutic Activities, Therapeutic Exercises Modalities Vasopneumatic Devices Next Visit Focus/Plan Next Note Type Treatment Note Next Visit Plan Continue CDT. Patient to bandage upper legs at home; has supplies from previously. To bring all compression stockings next session
--- NOTE | 2023-06-08 10:19 | PT.OTN ---
Current Diagnoses Type 2 diabetes mellitus without complications (06/08/23) Venous insufficiency (chronic) (peripheral) (06/08/23) Lymphedema, not elsewhere classified (06/08/23) Cellulitis of left lower limb (06/08/23) Physical Therapy Treatment Note PT-OP-A Visit Information Start: 04/29/23 07:55 Freq: Status: Active Protocol: Document 06/08/23 08:41 SAK (Rec: 06/08/23 09:21 SAK [id number]) Out-Patient Physical Therapy Visit Information Visit Information Visit Type Treatment Note Visit Start Time 08:46 Visit Stop Time 10:10 Total Visit Minutes 85 Visit Number 4 Evaluation Information Evaluation Date 04/29/23 Precautions Precautions a-fib skin allergies; elastic, rubber PT-OP-B Current Condition Start: 04/29/23 07:55 Freq: Status: Active Protocol: Document 06/02/23 10:29 SAK (Rec: 06/02/23 11:34 SAK [id number]) Current Condition History of Current Condition Onset Date October 2022 Current Complaints left LE lymphedema History of Current Condition Just came on; swelling and leaking of fluid, wound. Went to wound care at [facility] for a few months, no change in wounds, then developed cellulitis in January 2023. Had to have 2 rounds of antibiotics. Admitted to [facility] for IV and then oral antibiotics at home. Also diagnosed with DM, now controlled with injections. Wounds now healed , no leaking of fluid. Has dropped about 35 lbs. Doing PT at IR in [place] for LE strengthening and balance. Has thigh high open toe 20-30 mm Hg compression stocking left but doesn't stay up so is more of knee high. Also elevates left UE. States she was given a pump from wound care, has not used due to difficulty donning. Will bring next session Does HEP 3x/wk. Uses 4WW. Prior Treatments and Tests as above Treatment Goals Patient/Caregiver Goals Decrease edema and be able to self manage, prevent further complications PT-OP-C Subjective Start: 04/29/23 07:55 Freq: Status: Active Protocol: Document 06/08/23 08:41 SAK (Rec: 06/08/23 09:21 SAK [id number]) OP-PT Subjective Patient Comments Patient Comments REports sore this am back and medial right knee. Tries to use pillow between knees. States she has been practicing putting her pump on at home and has figured it out, doesn' t need to practice anymore. Used it 4x this week. Wearing compression left LE, when wears on right dry patch worsens, rarely gets swelling. Brought other compression to show PT; tried layering but didn't work for her. PT-OP-J Posture/Palpation/Skin Start: 04/29/23 07:55 Freq: Status: Active Protocol: Document 04/29/23 08:47 SAK (Rec: 04/29/23 10:18 [facility] [id number]) Skin Assessment Edema Assessment Left Leg Edema Appearance Discolored,Taut Comments fibrosis present lower leg ebenezer left greater than right dry, patchy areas of skin no open or weeping areas. Other Assessments Skin Assessment Comments see circumferential measurement under lymhedema. PT-OP-K Range of Motion Start: 04/29/23 07:55 Freq: Status: Active Protocol: Document 04/29/23 08:47 SAK (Rec: 04/29/23 10:18 [facility] [id number]) Hip Goniometric Range of Motion Hip ebenezer Hip ROM WFL Yes Knee Goniometric Range of Motion Knee ebenezer Knee ROM WFL Yes Ankle and Foot Goniometric Range of Motion Ankle and Foot ebenezer Ankle/Foot ROM WFL No Ankle and Foot ROM Limitations ROM Limitations Soft Tissue Tightness,Swelling PT-OP-N Lymphedema Start: 04/29/23 07:55 Freq: Status: Active Protocol: Document 06/08/23 08:41 SAK (Rec: 06/08/23 09:21 [facility] [id number]) Lymphedema Measurements Lower Extremity Circumference Measurements Right Unaffected MT Heads 25.3 cm Mid-foot 25.6 cm Medial Malleolus 32.6 cm 10 cm From Medial Malleolus 35.8 cm 20 cm From Medial Malleolus 45.2 cm 30 cm From Medial Malleolus 48.8 cm 40 cm From Medial Malleolus 54.4 cm 50 cm From Medial Malleolus 64.4 cm 60 cm From Medial Malleolus 75 cm Knee Joint 52.2 cm - measured from anterior ankle crease Left Affected MT Heads 24.8 cm Mid-foot 25.6 cm Medial Malleolus 32.9 cm 10 cm From Medial Malleolus 39.2 cm 20 cm From Medial Malleolus 47.7 cm 30 cm From Medial Malleolus 48.8 cm 40 cm From Medial Malleolus 52 cm 50 cm From Medial Malleolus 66.9 cm 60 cm From Medial Malleolus 75 cm Knee Joint 53.5 cm - from anterior ankle crease PT-OP-Q Treatments Start: 04/29/23 07:55 Freq: Status: Active Protocol: Document 06/08/23 08:41 [facility] (Rec: 06/08/23 09:21 [facility] [id number]) Cardio Equipment Recumbent Stepper (Sci-Fit) Duration (Minutes) 5 Resistance 1 Seat Position 11 Lymphedema Treatment Manual Lymphatic Drainage Location for ebenezer LE lymphedema Comments review self massage Lymphedema Wrapping Other compression stocking left ( didn't bring for right) Sequential Lymphedema Exercises Duration 5 reps ea Compression Garment Assessment Compression Garment Assessment Details good fit all compression stockings, patient demonstrated good understanding of correct fit, frequent checking to make sure so wrinkles or tourniquet effect due to sliding. PT-OP-R Modalities Start: 04/29/23 07:55 Freq: Status: Active Protocol: Document 06/08/23 08:41 [facility] (Rec: 06/08/23 09:21 [facility] [id number]) Compression Pump Treatment Treatment Location ebenezer LE's Pressure Amount (mmHg) (mmHG) 50 Inflation Time (Seconds) 30 Deflation Time (Seconds) 10 Treatment Duration (minutes) 60 Treatment Tolerance Good PT-OP-T Assessment and Plan Start: 04/29/23 07:55 Freq: Status: Active Protocol: Document 06/08/23 08:41 [facility] (Rec: 06/08/23 09:21 [facility] [id number]) Physical Therapy Assessment Goals Two Impairment Patient has difficulty with donning and doffing compression garments corre Short Term Goal (STG) Patient to be instructed in adaptive methods for donning and doffing compression garments STG Duration goal met Logistic Specialist Goal (LTG) Patient to be independent in donning correctly and doffing her compression garments LTG Duration goal met One Impairment Lymphedema left LE Impairment Circumferrential measurements significantly higher left vs right though also has skin changes and swelling right LE which appear to be developing lymphedema as well. Short Term Goal (STG) Patient to be instructed in all aspects of lymphedema care to include skin care, manual lymphatic drainage, compression and lymphedema exercises STG Duration goal met Assisted Goal (LTG) Decrease lymphedema to a stable level (no increase or decrease greater than 1 cm). Patient to be independent in all aspects of lymphedema care and obtain appropriate compression garments for self management. LTG Duration goal met Assessment Summary Assessment Patient requests today be last treatment session both due to feeling comfortable with pump and use of compression and financial limitations; difficult to afford gas to get to appointments. Physical Therapy Plan Frequency and Duration Frequency of Treatment 1x/Week Duration of treatment (weeks) 12 Plan of Care Start Date 04/29/23 Plan of Care End Date 07/29/23 Therapeutic Interventions Therapeutic Interventions Home Exercise Program, Lymphedema Management,Patient/ Caregiver Education,Self-Care/ Home Management,Soft Tissue Mobilization,Taping, Therapeutic Activities, Therapeutic Exercises Modalities Vasopneumatic Devices Discharge Physical Therapy Discharge Reasons Patient Request Discharge Comments goals mostly achieved
== END 2023-06-10 10:39 | disposition home or self-care (01) ==
LOC: PHYS 08:45
PROVIDERS: Absent Provider Nurse Practitioner Family; Family Provider Nurse Practitioner Family; PCP Nurse Practitioner Family; Referring Provider Nurse Practitioner; Visit Provider Nurse Practitioner
DX: L03.116 Cellulitis of left lower limb (principal); I89.0 Lymphedema, not elsewhere classified; I87.2 Venous insufficiency (chronic) (peripheral); E11.9 Type 2 diabetes mellitus without complications
CPT/HCPCS: 97016; 97110; 97140; 97162; 97530; 97535